=== PATIENT | male | born 1965 | race Caucasian/White ===

== ENCOUNTER 2024-10-06 07:23 | Emergency (ER) | payer MEDICARE ==
[~2024-10-06] VITALS: Ht 175.3 cm; Wt 73.0 kg
[2024-10-06] MEDS ORDERED: LORazepam 2 MG/ML VIAL IM ONE (07:45)
[2024-10-06] MEDS ORDERED: HALOPERIDOL LACTATE 5 MG/ML VIAL IM ONE (07:45)
[2024-10-06] MEDS ORDERED: diphenhydrAMINE HCL 50 MG/ML VIAL IM ONE (07:45)
[2024-10-06 09:03] LABS: BILIRUBIN, URINE NEGATIVE (negative); BLOOD/HGB, URINE NEGATIVE (Negative); KETONE, URINE NEGATIVE (Negative); LEUK ESTERASE, URINE NEGATIVE (negative); NITRITE, URINE NEGATIVE (negative); PH, URINE 5.5 (5-7)
[2024-10-06 09:12] LABS: CRYSTALS, URINE NONE SEEN (0-1+); RED BLOOD CELLS, URINE 0-1 /hpf (0-5)
[2024-10-06 09:12] LABS: BASOPHILS 0.3 % (0-2); EOSINOPHILS 1.4 % (0-6); HEMATOCRIT 40.1 % (35.0-50.0); HEMOGLOBIN 13.5 g/dL (12.0-18.0); LYMPHOCYTES 7.8 % (24-44); MCH 32.3 (27-36); MCHC 33.5 g/dl (30-36); MCV 96.3 fl (81-99); MONOCYTES 6.3 % (0-12); NEUTROPHILS 84.2 % (39-80); PLATELET COUNT 217 K/uL (140-440); RBC 4.17 M/ul (4.3-5.7); RDW 12.7 (10.5-15.0)
[2024-10-06 09:13] LABS: BACTERIA, URINE NONE SEEN /hpf (negative); CASTS, URINE HYALINE 1+ \\lpf; COLLECTION TYPE, URINE CLEAN CATCH; REFLEX CULTURE, URINE No (No)
[2024-10-06 09:21] LABS: AMPHETAMINES, URINE POSITIVE (NEGATIVE); BARBITURATES, URINE NEGATIVE (NEGATIVE); BENZODIAZEPINE, URINE NEGATIVE (NEGATIVE); BUPRENORPHINE, URINE NEGATIVE (NEGATIVE); CANNABINOID, URINE POSITIVE (NEGATIVE); COCAINE, URINE NEGATIVE (NEGATIVE); ECSTASY, URINE NEGATIVE (NEGATIVE); FENTANYL, URINE NEGATIVE (NEGATIVE); METHADONE, URINE NEGATIVE (NEGATIVE); OPIATES, URINE NEGATIVE (NEGATIVE); OXYCODONE, URINE NEGATIVE (NEGATIVE); PHENCYCLIDINE, URINE NEGATIVE (NEGATIVE)
[2024-10-06 09:46] LABS: ACETAMINOPHEN 0 ug/mL (10-30); ALBUMIN 3.4 g/dL (3.4-5.0); ALCOHOL, MEDICAL <3 ng/dL (<3); ALKALINE PHOSPHATASE 151 U/L (46-116); ALT (SGPT) 30 U/L (14-59); ANION GAP 12.5 (7-21); AST (SGOT) 28 U/L (15-37); BILIRUBIN, TOTAL 0.5 ng/dL (0.2-1.0); BUN/CREATININE RATIO 15.78 (6.0-28.6); CALCIUM 8.8 mg/dL (8.5-10.1); CARBON DIOXIDE 28 mmol/L (21-32); CHLORIDE 108 mmol/L (98-107); CREATININE, SERUM 1.33 mg/dL (0.70-1.30); GLOMERULAR FILTRATION RATE,EST 61 mL/min (>60); MAGNESIUM 2.3 mg/dL (1.8-2.4); POTASSIUM 3.5 mmol/L (3.5-5.1); PROTEIN, TOTAL 6.5 g/dL (6.4-8.2); TSH, 3RD GENERATION 1.361 uIU/mL (0.358-3.740); UREA NITROGEN 21 mg/dL (7-18)
[2024-10-07 04:17] VITALS: BP 164/77
--- NOTE | 2024-10-08 12:15 | EKG ---
[facility] [address] [facility] [place], [place] [address] Signed Normal sinus rhythm Normal ECG No previous ECGs available Confirmed by Lita Ozuna MD ([id number]) on 10/08/2024 12:15:18 PM Electronically Signed By: LITA OZUNA DO 10/08/24 1215 PATIENT NAME: ASHLEY HEDRICK Electrocardiogram DATE OF : 63 PHYSICIAN: LITA OZUNA DO REPORT #: [id number] REPORT IS CONFIDENTIAL AND NOT TO BE RELEASED WITHOUT AUTHORIZATION
== END 2024-10-07 04:18 | disposition home or self-care (01) ==
LOC: ED 07:23
PROVIDERS: Emergency Medicine
DX: Z02.89 Encounter for other administrative examinations (principal); R41.82 Altered mental status, unspecified; F19.10 Other psychoactive substance abuse, uncomplicated; F29 Unspecified psychosis not due to a substance or known physiological condition
CPT/HCPCS: 36415; 51701; 80053; 80307; 81001; 82140; 83735; 84443; 85025; 93005; 93010; 99285; G0480; J1200; J1630; J2060

== ENCOUNTER 2025-01-13 06:53 | Emergency (ER) | payer SELFPAY ==
[~2025-01-13] VITALS: Ht 175.3 cm; Wt 74.0 kg
[2025-01-13] MEDS ORDERED: IBUPROFEN 600 MG TAB PO ONE (07:15)
[2025-01-13 07:19] LABS: CORONAVIRUS COVID-19 AG NEGATIVE (NEGATIVE); INFLUENZA A AG NEGATIVE (NEGATIVE); INFLUENZA B AG NEGATIVE (NEGATIVE)
[2025-01-13 10:30] VITALS: BP 159/103
== END 2025-01-13 10:20 | disposition home or self-care (01) ==
LOC: ED 06:53
PROVIDERS: Emergency Medicine
DX: J06.9 Acute upper respiratory infection, unspecified (principal)
CPT/HCPCS: 36415; 99283; A9270

== ENCOUNTER 2025-01-21 20:36 | Emergency (ER) | payer OTHER, MEDICARE ==
[~2025-01-21] VITALS: Ht 172.7 cm; Wt 70.7 kg
--- OUTSIDE RECORDS SUMMARY | 2025-01-21 20:36 | XMS ---
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 Darrick has no Care Guidelines for this patient. [place] [facility] MO.) [facility] NOTE: Visits indicate total known visits. ED/C VISIT TRACKING (12 MO.) 01/21/2025 20:36 [facility] [place] TYPE: Emergency COMPLAINT: - FALL 01/13/2025 06:54 [facility] [place] TYPE: Emergency COMPLAINT: - COLD SYMPTOMS DIAGNOSES: - Acute upper respiratory infection, unspecified - Cough, unspecified 10/06/2024 07:24 [facility] [place] TYPE: Emergency COMPLAINT: - MEDICAL CLEARANCE DIAGNOSES: - Altered mental status, unspecified - Encounter for other administrative examinations - Other psychoactive substance abuse, uncomplicated - Unspecified psychosis not due to a substance or known physiological condition INPATIENT VISIT TRACKING (12 MO.) No inpatient visits to display in this time frame [id number]
[2025-01-21] MEDS ORDERED: KETOROLAC TROMETHAMINE 60 MG/2 ML VIAL IM ONE (20:45)
[2025-01-21] MEDS ORDERED: methylPREDNISolone 4 MG HOME.PACK PO ONE (21:30)
[2025-01-21] MEDS ORDERED: INHALER, ASSIST DEVICES 1 EACH SPACER MISC ONE (21:30)
[2025-01-21] MEDS ORDERED: ALBUTEROL SULFATE 8 GM HOME.PACK INH ONE (21:30)
[2025-01-21] MEDS ORDERED: AZITHROMYCIN 250 MG TAB PO ONE (21:30)
[2025-01-21] MEDS ORDERED: AZITHROMYCIN500 MG PO ×2 (21:33)
[2025-01-21] MEDS ORDERED: TRAMADOL HCL50 MG PO ×2 (21:33)
[2025-01-21] MEDS ORDERED: TRAMADOL HCL 50 MG HOME.PACK PO ONE (21:45)
[2025-01-21 22:12] VITALS: BP 187/126
== END 2025-01-21 22:10 | disposition home or self-care (01) ==
LOC: ED 20:36
DX: J18.9 Pneumonia, unspecified organism (principal); M25.561 Pain in right knee; W01.0XXA Fall on same level from slipping, tripping and stumbling without subsequent striking against object, initial encounter
CPT/HCPCS: 71250; 73560; 94640; 96372; 99284-25; A9270; J1885

== ENCOUNTER 2025-01-25 21:51 | Emergency (ER) | payer MEDICARE ==
[~2025-01-25] VITALS: Ht 172.7 cm; Wt 70.7 kg
[~2025-01-25 21:51] MED LIST: AZITHROMYCIN500 MG PO; TRAMADOL HCL50 MG PO
--- OUTSIDE RECORDS SUMMARY | 2025-01-25 21:58 | XMS ---
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 Darrick has no Care Guidelines for this patient. [place] VISIT COUNT (12 MO.) 4 [facility] TOTAL 4 NOTE: Visits indicate total known visits. ED/C VISIT TRACKING (12 MO.) 01/25/2025 21:51 [facility] [place] TYPE: Emergency COMPLAINT: - MED REFILL 01/21/2025 20:36 [facility] [place] TYPE: Emergency COMPLAINT: - FALL DIAGNOSES: - Fall on same level from slipping, tripping and stumbling without subsequent striking against object, initial encounter - Other chest pain - Pain in right knee - Pneumonia, unspecified organism 01/13/2025 06:54 [facility] [place] TYPE: Emergency [...] visits to display in this time frame [id number]
[2025-01-26] MEDS ORDERED: AZITHROMYCIN 250 MG HOME.PACK PO ONE (00:45)
[2025-01-26 01:18] VITALS: BP 173/80
== END 2025-01-26 01:19 | disposition home or self-care (01) ==
LOC: ED 21:51
DX: J18.9 Pneumonia, unspecified organism (principal)
CPT/HCPCS: 99283

== ENCOUNTER 2025-01-26 21:38 | Emergency (ER) | payer MEDICARE ==
[~2025-01-26] VITALS: Ht 172.7 cm; Wt 70.7 kg
--- OUTSIDE RECORDS SUMMARY | 2025-01-26 23:07 | XMS ---
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 Darrick has no Care Guidelines for this patient. [place] [facility]12 MO[facility] T[facility] 5 NOTE: Visits indicate total known visits. ED/C VISIT TRACKING (12 MO.) [facility] 23[facility] COMPLAINT: - MEDICAL CLEARANCE 01/25/2025 21:51 [facility] [place] TYPE: Emergency COMPLAINT: - MED REFILL 01/21/2025 20:36 [facility] [place] TYPE: Emergency COMPLAINT: - FALL DIAGNOSES: [...] visits to display in this time frame [id number]
[2025-01-27 01:50] VITALS: BP 185/103
--- NOTE | 2025-01-27 19:28 | EKG ---
[facility] [address] [facility] [place] [address] Signed Sinus rhythm with premature atrial complexes Otherwise normal ECG When compared with ECG of 06-OCT-2024 10:08, premature atrial complexes are now present QT has shortened Confirmed by Ivan Miller MD ([id number]) on 01/27/2025 7:28:38 PM Electronically Signed By: IVAN MILLER MD 01/27/251927 PATIENT NAME: ASHLEY HEDRICK Electrocardiogram DATE OF : 63 PHYSICIAN: IVAN MILLER MD REPORT #: [id number] REPORT IS CONFIDENTIAL AND NOT TO BE RELEASED WITHOUT AUTHORIZATION
== END 2025-01-27 01:50 | disposition home or self-care (01) ==
LOC: ED 21:38
DX: R53.1 Weakness (principal); Z79.2 Long term (current) use of antibiotics
CPT/HCPCS: 70450; 93005; 93010